=== PATIENT | male | born 1940 | race Caucasian/White ===

== ENCOUNTER → 2018-08-01 | Day surgery (SDC) | payer MEDICARE ==
[~2018-08-01] MED LIST: ALLOPURINOL100 MG PO; ASPIR 8181 MG PO; CELEBREX100 MG PO; DEXILANT60 MG PO; FENTANYL CITRATE/PF 100MCG/2 ML INJ ONE; GLYCOPYRROLATE INJ 0.2 MG/ML VIAL ONE; HYDROCHLOROTHIA25 MG PO; LOVASTATIN40 MG PO; METOPROLOL SUCC25 MG PO; MIDAZOLAM HCL 2 MG/2 ML VIAL ONE; NIFEDIPINE10 MG PO; PROPOFOL IV EMULSION 10 MG/ML 50 ML VIAL ONE; TERAZOSIN HCL5 MG PO
--- OUTSIDE RECORDS SUMMARY | 2018-08-01 07:28 | XMS REPORT ---
Author Author [facility] Address Unknown Phone Unavailable Care Team Providers Care Senior Asic Engineer Name Role Phone Rita Culver Unavailable Unavailable Key Crowley Unavailable Unavailable Problems This patient has no known problems. Allergies, Adverse Reactions, Alerts This patient has no known allergies or adverse reactions. Medications This patient has no known medications. Encounters Start Date/Time End Date/Time Encounter Type Admission Type Attending [facility] Care Department Encounter ID 2018-07-13 08:40:00 2018-07-13 08:40:00 Outpatient Pancho Culver [id number] 08:38:00 2018-07-13 08:38:00 Outpatient Juan Carlos Crowley [id number] 13:01:00 2018-07-05 13:01:00 Outpatient Pancho Culver [id number]
[2018-08-01 13:10] VITALS: BP 101/61
== END | disposition home or self-care (01) ==
LOC: OR 07:25
PROVIDERS: ATTEND Internal Medicine Gastroenterology
DX: K29.70 Gastritis, unspecified, without bleeding (principal); D12.2 Benign neoplasm of ascending colon; K21.9 Gastro-esophageal reflux disease without esophagitis; K44.9 Diaphragmatic hernia without obstruction or gangrene; K57.30 Diverticulosis of large intestine without perforation or abscess without bleeding; K64.8 Other hemorrhoids; M10.9 Gout, unspecified; I10 Essential (primary) hypertension; N40.0 Benign prostatic hyperplasia without lower urinary tract symptoms; R53.1 Weakness; H91.90 Unspecified hearing loss, unspecified ear; R06.09 Other forms of dyspnea; Z88.6 Allergy status to analgesic agent; Z79.82 Long term (current) use of aspirin; Z68.32 Body mass index [BMI] 32.0-32.9, adult
CPT/HCPCS: 43239; 45380; J2250; J2704; 45378